=== PATIENT | male | born 1970 | race Caucasian/White ===

== ENCOUNTER 2025-03-02 21:05 | Emergency (ER) | payer OTHER ==
[~2025-03-02] VITALS: Ht 180.3 cm; Wt 116.0 kg
[2025-03-02 21:09] VITALS: O2SAT 100
[2025-03-02 21:33] VITALS: BP 156/89; PULSE 86; RESP 16; TEMP 36.7; O2SAT 99
[2025-03-02] MEDS: KETOROLAC 15MG/ML VIAL IM ONE (22:15)
[2025-03-02] MEDS ORDERED: NAPR-1176 MT (23:08)
[2025-03-02] MEDS ORDERED: LIDO700A15 TP (23:08)
== END 2025-03-02 23:20 | disposition home or self-care (01) ==
LOC: ER 21:05
DX: S90.31XA Contusion of right foot, initial encounter (principal); E11.9 Type 2 diabetes mellitus without complications; E78.00 Pure hypercholesterolemia, unspecified; I10 Essential (primary) hypertension; Z88.0 Allergy status to penicillin; Z98.890 Other specified postprocedural states; W20.8XXA Other cause of strike by thrown, projected or falling object, initial encounter; Y93.89 Activity, other specified; Y92.89 Other specified places as the place of occurrence of the external cause; Y99.8 Other external cause status
CPT/HCPCS: 99283; 73630; 96372; J1885